=== PATIENT | female | born 1940 | race Caucasian/White ===

== ENCOUNTER → 2016-08-06 | Outpatient (CLI) | payer OTHER ==
--- NOTE | 2016-08-06 20:29 | DX ---
DEXA Bone Mineral Densitometry August 06, 2016 Clinical Indications: 76-year-old postmenopausal woman with personal history of low bone mineral den sity. The patient currently takes supplemental calcium, a multivitamin, and vitamin D. Technique: Bone Mineral Densitometry (BMD) by Dual Energy X-Ray Absorptiometry (DEXA) was performed utilizing the [employer] scanner. The lumbar spine was evaluated in the AP projection. The bilat eral hips and right forearm were evaluated in the AP projection. Vertebral fracture assessment was a lso performed. Comparison: October 24, 2009. AP Lumbar Spine: The L1 and L2 vertebral bodies were evaluated. L3 and L4 were excluded due to new degenerative disk disease at L3-L4. BMD: 1.136 gm/cm2. T-score: -0.3 SD. Z-score: 1.4 SD. Increased density. AP Left Hip: Total BMD: 0.843 gm/cm2. T-score: -1.3 SD. Z-score: 0.4 SD. Decreased density. AP Right Hip: Total BMD: 0.815 gm/cm2. T-score: -1.5 SD. Z-score: 0.2 SD. Decreased density. AP Right Forearm, 07/27: BMD: 0.788 gm/cm2. T-score: -1 SD. Z-score: 1.4 SD. Decreased density. Vertebral Fracture Assessment: No significant fracture deformity. Conclusion: Decreased low bone mineral density of bilateral hips and right forearm since 2009. The density remains in the "low density" osteopenic range. The ten year risk for any major osteoporotic fracture is 12.4% and for a hip fracture is 2.8%. Any bone loss in this patient is probably related to aging or estrogen deficiency. To prevent osteoporosis and to promote bone density, consider the following recommendations: 1. Pursue a regular regimen of weightbearing and muscle-strengthening exercises in order to reduce t he risk of falls and fracture (as tolerated by the patient's general medical condition). 2. Ensure that total daily dietary calcium intake is maximized. 3. Check serum hydroxy vitamin D3 (normal >30ng/ml). 4. Ensure daily intake of vitamin D is 800 international units. 5. Consider follow up DEXA scan in two years to assess the rate of bone loss in this patient. 6. Consider excluding common secondary causes of bone loss. Laboratory evaluation might include CBC , TSH, calcium, phosphorous, albumin, creatinine, alkaline phosphatase, PTH, serum, electrophoresis ( SPEP or UPEP), antitissue transglutaminase antibody levels (celiac disease), and hydroxy vitamin D3, as well as a 24-hour urine calcium.
== END ==
LOC: BRMIMAGING 10:50
DX: Z13.820 Encounter for screening for osteoporosis (principal); Z78.0 Asymptomatic menopausal state